=== PATIENT | male | born 1960 | race Caucasian/White ===

== ENCOUNTER 2020-01-07 17:36 | Emergency (ER) | payer OTHER | END 2020-01-07 17:53 | disposition home or self-care (01) | LOC: JVIRT 17:36 | DX: Z11.59 Encounter for screening for other viral diseases (principal) | CPT/HCPCS: C9803; Q3014-GT; U0003 ==

== ENCOUNTER 2020-02-09 11:15 | Emergency (ER) | payer OTHER | END 2020-02-09 13:15 | disposition home or self-care (01) | LOC: JVIRT 11:15 | DX: Z11.59 Encounter for screening for other viral diseases (principal) | CPT/HCPCS: C9803; G2251-GT; Q3014-GT; U0003 ==

== ENCOUNTER 2020-09-29 17:22 | Emergency (ER) | payer OTHER ==
[2020-10-01 11:10] LABS: SARS-CoV-2 NAA Not Detected (Not Detected)
== END 2020-09-29 18:01 | disposition home or self-care (01) ==
LOC: JVIRT 17:22
DX: Z20.822 Contact with and (suspected) exposure to COVID-19 (principal)
CPT/HCPCS: C9803; Q3014-GT; U0003; U0005